=== PATIENT | female | born 1995 | race Caucasian/White ===

== ENCOUNTER → 2019-06-02 11:10 | Outpatient (CLI) | payer OTHER, SELFPAY ==
--- NOTE | 2019-06-02 11:22 | CA_ITS ---
APPROVED REPORT EXAM: Comprehensive 2D, Doppler, and color-flow Echocardiogram Culturist: Alejandra Pillai RVT Ht: 5 ft 0 in Wt: 235lbs BSA: 2.00 BP: 140/100 mmHg Indications: TACHYCARDIA,HTN M-Mode Dimensions RVDd 2.14 cm (0.9-2.6) LA Diam 3.32 cm (1.9-4.0) LVDd 4.61 cm (3.5-5.7) Ao Diam 2.51 cm (2.0-3.7) IVSd 1.18 cm (0.6-1.1) PWd 0.75 cm (0.6-1.1) EF (Teich) 57.80% Left Ventricle Left atrium is normal size, left ventricle is normal size, there is no concentric left ventricular hypertrophy, visually estimated ejection fraction 55% with no regional wall motion abnormality. Right Ventricle Right atrium and right ventricular normal size and contractility. Aortic Valve Aortic valve is grossly normal, there is no aortic stenosis or aortic insufficiency. Mitral Valve Mitral valve is grossly normal, there is no mitral stenosis or mitral regurgitation. Tricuspid Valve Tricuspid valve is grossly normal, there is no significant tricuspid regurgitation. Pulmonic Valve Pulmonic valve is poorly visualized. Great Vessels Aortic root is normal size. Pericardium No significant pericardial effusion noted. Conclusion 1. Normal left ventricular size, preserved left ventricular systolic function, visually estimated ejection fraction 55% with no regional wall motion abnormality, diastolic parameters are within normal range. 2. No significant pericardial effusion noted. Electronically signed by : Ede Biggs, 06/02/2019 13:00:35
== END ==
PROVIDERS: PCP Family Medicine; Visit Provider Family Medicine
DX: R00.0 Tachycardia, unspecified (principal); I10 Essential (primary) hypertension
CPT/HCPCS: 93225; 93226; 93306